=== PATIENT | male | born 1970 | race Caucasian/White ===

== ENCOUNTER 2024-10-20 03:49 | Emergency (ER) | payer OTHER, MEDICAID ==
[2024-10-20] MEDS: Ketorolac 30 MG/ML SDV IM ONE (04:33)
[2024-10-20] MEDS: Amoxicillin 500 MG Cap PO ONE (04:34)
== END 2024-10-20 04:56 | disposition home or self-care (01) ==
LOC: KA.ED 03:49
DX: K02.9 Dental caries, unspecified (principal); F17.200 Nicotine dependence, unspecified, uncomplicated; Z79.899 Other long term (current) drug therapy
CPT/HCPCS: 96372; 99282; A9270-GY; J1885